=== PATIENT | female | born 1945 | race Caucasian/White ===

== ENCOUNTER 2017-02-17 10:43 | Outpatient (CLI) | payer MEDICARE, OTHER ==
[2017-02-17 11:05] LABS: BASOPHILS % 0.3 (0.0-1.5); MEAN CORPUSCULAR HEMOGLOBIN 30.5 pg (28.0-34.0); MEAN CORPUSCULAR VOLUME 89.8 fl (80.0-100.0); MONOCYTES % 4.4 % (0.0-11.0); NEUTROPHILS # 2.8 # k/uL (1.4-7.7)
[2017-02-17 11:36] LABS: eGFR (African) > 60; eGFR (Non-African) > 60
--- NOTE | 2017-02-17 16:54 | Diagnostic Imaging Report ---
[facility] [address] [facility] [address] [address] Report Submission Date: Feb 17, 2017 3:21:55 PM CDT Patient Study Name: JOHN FINNEGAN Date: Feb 17, 2017 11:33:04 AM CDT Modality Type: CR Gender: F Description: CHEST : 47 Institution: [facility] Physician: ZAID MIKE - BERTIN Chest PA and lateral views Clinical history: Cough for 6 weeks Widening of the superior mediastinum with possible of right aortic arch. Normal heart shadow. Old healed fracture of the right 6th rib of the adjacent right pleural thickening. No acute infiltrates or pleural effusion. Impression: Widening of the superior mediastinum with possible right aortic arch, no prior exams are available for comparison Recommend CT scan of the chest with IV contrast for further confirmation and evaluation . No acute infiltrates or pleural effusion Electronically signed on Feb 17, 2017 3:21:55 PM CDT by: Hola JIMENEZ
== END 2017-02-17 10:44 ==
LOC: LAB 10:43
PROVIDERS: ATTEND Family Medicine
DX: E11.9 Type 2 diabetes mellitus without complications (principal); R53.83 Other fatigue; R05 Cough
CPT/HCPCS: 36415; 71020; 80053; 83036; 85025

== ENCOUNTER 2017-02-22 10:07 | Outpatient (CLI) | payer MEDICARE, OTHER ==
--- NOTE | 2017-02-22 19:12 | Diagnostic Imaging Report ---
Report Submission Date: Feb 22, 2017 5:01:47 PM CDT Patient ~ Study Name: JOHN FINNEGAN ~ Date: Feb 22, 2017 10:29:36 AM CDT ~ Modality Type: CT\SR Gender: F ~ Description: CT CHEST W/ CONTRAST : 47 ~ Institution: [facility] Physician: ZAID MIKE ~ ~ ~ ~ HISTORY: ~71-year-old female with chest x-ray demonstrating widened mediastinum. COMPARISON: Chest x-ray dated 02/17/2017 TECHNIQUE: Helical CT images of the chest were performed with 94 ml Omnipaque 300 contrast. ~Sagittal and coronal reformatted images were obtained. FINDINGS: No consolidative infiltrates, pneumothorax, pleural effusions, suspicious lung nodules, or pulmonary edema. ~No suspicious mediastinal or axillary adenopathy. ~There are calcific pleural plaques throughout the right hemithorax. ~There is volume loss of the right hemithorax. ~The heart is not enlarged. ~There are extensive coronary artery calcifications. ~There are calcifications about the aortic valve. ~There is a right aortic arch giving the appearance of upper mediastinum widening on recent chest x-ray. ~The first branch of the aortic arch is a left innominate artery giving rise to the left common carotid and subclavian arteries. ~The second branch of the aortic arch is on the right common carotid artery. ~The third branch of the aortic arch is the right subclavian artery. 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 The liver is diffusely fatty infiltrated. IMPRESSION: 1. 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 2. ~Calcific right pleural plaques and decreased volume of the right hemithorax may be related to old granulomatous disease or asbestos-related pleural disease. ~Does the patient have symptoms of restrictive lung disease or fibrothorax? 3. ~Extensive coronary artery disease. 4. ~Pulmonary arterial hypertension. 5. ~Diffuse fatty infiltration of the liver. ~ Electronically signed on Feb 22, 2017 5:01:47 PM CDT by: Abraham JIMENEZ
== END 2017-02-22 10:10 ==
LOC: RAD 10:07
PROVIDERS: ATTEND Family Medicine
DX: R93.8 Abnormal findings on diagnostic imaging of other specified body structures (principal)
CPT/HCPCS: 71260; Q9966

== ENCOUNTER 2017-02-24 08:53 | Outpatient (CLI) | payer MEDICARE, OTHER | END 2017-02-24 08:55 | LOC: LAB 08:53 | PROVIDERS: ATTEND Family Medicine | DX: R30.0 Dysuria (principal) | CPT/HCPCS: 87086; 87186 ==

== ENCOUNTER 2017-03-07 09:55 | Outpatient (CLI) | payer MEDICARE, OTHER | END 2017-03-07 09:56 | LOC: LAB 09:55 | PROVIDERS: ATTEND Family Medicine | DX: R30.0 Dysuria (principal) | CPT/HCPCS: 87086; 87186 ==

== ENCOUNTER 2017-03-18 10:20 | Outpatient (CLI) | payer MEDICARE, OTHER | END 2017-03-18 10:21 | LOC: LABRHC 10:20 | PROVIDERS: ATTEND Family Medicine | DX: R30.0 Dysuria (principal) | CPT/HCPCS: 87086; 87186 ==

== ENCOUNTER 2017-04-25 10:05 | Outpatient (CLI) | payer MEDICARE, OTHER | END 2017-04-25 10:06 | LOC: LABRHC 10:05 | PROVIDERS: ATTEND Family Medicine | DX: R30.0 Dysuria (principal) | CPT/HCPCS: 87086 ==

== ENCOUNTER 2018-04-11 18:54 | Emergency (ER) | payer MEDICARE, OTHER ==
[2018-04-11] MEDS ORDERED: DIPH,PERTUSS(ACELL),TET VAC/PF 0.5 ML DISP.SYRIN IM ONE (19:11)
--- NOTE | 2018-04-11 19:18 | ED Physician Documentation ---
Fall - HISTORIAN Historian: patient, spouse - HPI Stated Complaint: Fall with head wound Chief Complaint: Fall Additional Information: pt fell backward hit head on cement has 2cm lac lt occiput denies sig lhead or neckkl pain- c/o pain lt wrist Onset: just prior to arrival (1829) Where: home Context: lost balance r: mild Associated Symptoms:: no loss of consciousness. denies: dazed, comatose Location of Pain/Injury: head. denies: neck, face Injury to Right Extremity: none Injury to Left Extremity: wrist - ROS CONST: no problems NEURO: denies: dizziness, anxiety, depression, other MS/SKIN/LYMPH: denies: weakness, numbness, neck pain, back pain EYES/ENT: none. 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 wears devise to prevent rt foot drop-walks swith cane out of house -- - gerd hi chol ) Immunizations: denies: UTD Allergies/Adverse Reactions: Allergies Allergy/AdvReac Type Severity Reaction Status Date / Time No Known Allergies Allergy Unverified 04/11/18 19:07 Home Medications: Ambulatory Orders Medication Instructions Recorded Baclofen 5 mg PO BID u2 03/27/13 Clopidogrel Bisulfate [Plavix] 75 mg PO DAILY u2 03/27/13 - SOCIAL HX Smoking History: less than 1 pack/day Alcohol Use: none Drug Use: none - FAMILY HX Family History: no significant history - VITAL SIGNS Vital Signs: Vital Signs Temp Pulse Resp BP Pulse Ox 98.0 F 73 16 160/70 96 04/11/18 18:55 04/11/18 18:55 04/11/18 18:55 04/11/18 18:55 04/11/18 18:55 - REVIEWED ASSESSMENTS Nursing Assessment Reviewed: Yes Vitals Reviewed: Yes ED Results Lab/Radiology - Orders Orders: ED Orders Category Date Time Status Skin Adhesive NOW Care 04/11/18 19:15 Ordered WRIST 3 VIEWS OR MORE [RAD] Stat Exams 04/11/18 Ordered Diph,Pertuss(Acell),Tet Vac/Pf [Adacel] Med 04/11/18 19:11 Once 0.5 ml IM .ONCE ONE Fall Physical Exam - Physical Exam General Appearance: mild distress Head: non-tender, trauma (2cm lt post occiput) Neck: non-tender Eye: JESE, EOMI ENT: nml external inspection Resp/CVS: chest non-tender, breath sounds nml, heart sounds nml Abdomen: soft, non-tender Neuro: oriented x3, sensation nml, motor nml, mood/affect nml Skin: color nml, no rash. No: cyanosis, diaphoresis, pallor, ecchymosis, skin rash Extremities: other (lt wrist) - Bovey Coma Score Eyes Open: Spontaneous Speech: Oriented Motor: Obeys Commands Discharge Clincal Impression: head lac 2cm Referrals: Susannah Em MD [Primary Care Provider] - 2 Days Comments: wound cleansed ww/ betadine exp for body approx w shabbir-pt hemanth well Condition: Good Disposition: 01 HOME, SELF-CARE Decision to Admit: NO Decision Time: 13:48
[2018-04-11 20:20] VITALS: BP 141/66
--- NOTE | 2018-04-12 05:32 | Diagnostic Imaging Report ---
AMNA ESTEVEZ [facility] [address] [facility] [address] [address] Report Submission Date: April 11, 2018 7:49:24 PM CDT Patient Study Name: JOHN FINNEGAN Date: April 11, 2018 7:13:00 PM CDT Modality Type: DX Gender: F Description: UPPER EXTREMITY : 47 Institution: [facility] Physician: AMNA ESTEVEZ Left wrist 3 views Date of Exam: April 11, 2018. History: PAIN FROM FALL GOING UP STAIRS (Hx) / ITS.REASON falll wrist pain Findings: Degenerative osteoarthritic changes are present. There is no evidence of acute fracture or dislocation. The radiocarpal alignment is maintained. There is mild soft tissue swelling. The carpal bones are intact. Impression: No acute osseous abnormality. Degenerative osteoarthritic changes. Electronically signed on April 11, 2018 7:49:24 PM CDT by: Franc JIMENEZ
== END 2018-04-11 20:15 | disposition home or self-care (01) ==
LOC: ED 18:54
DX: S01.81XA Laceration without foreign body of other part of head, initial encounter (principal); W18.30XA Fall on same level, unspecified, initial encounter; Y93.9 Activity, unspecified; Y92.9 Unspecified place or not applicable; Z23 Encounter for immunization
CPT/HCPCS: 12001; 73110; 90471; 90715

== ENCOUNTER 2018-04-13 09:59 | Outpatient (CLI) | payer MEDICARE, OTHER ==
--- NOTE | 2018-04-13 19:50 | Diagnostic Imaging Report ---
[facility] [address] [facility] [address] [place], [place]. [address] Report Submission Date: April 13, 2018 10:41:44 AM CDT Patient Study Name: JOHN FINNEGAN Date: April 13, 2018 10:11:55 AM CDT Modality Type: CT\SR Gender: F Description: CT BRAIN W/O CONTRAST : 47 Institution: [facility] Physician: ZAID MIKE Examination: CT head without contrast History: CT HEAD W/O, S/P FALL- HIT HEAD 04/11/18, LEFT SIDED PAIN, ON PLAVIX FOR CVA, PT STATES HX OF STROKE X7 YEARS AGO (Hx) Comparison exam: None available Technique: Noncontrast head CT protocol. Findings: Ventricles and sulci are prominent, though consistent for patient age. Cerebrocerebellar parenchyma demonstrates periventricular low attenuation consistent with small vessel disease. No evidence for parenchymal hemorrhage. No evidence for mass or mass effect. No midline shift. No extra axial fluid collections. Partial visualization of the paranasal sinuses, mastoid air cells, orbits, skull and scalp without gross irregularity. Anterior falx calcifications. Impression: Advanced age related changes. No acute parenchymal process. No hemorrhage. Correlation with any older exams recommended to confirm stability of the presumed age related parenchymal changes. Electronically signed on April 13, 2018 10:41:44 AM CDT by: Prieto JIMENEZ
== END 2018-04-13 10:00 ==
LOC: RAD 09:59
PROVIDERS: ATTEND Family Medicine
DX: S00.83XD Contusion of other part of head, subsequent encounter (principal); E11.9 Type 2 diabetes mellitus without complications; W19.XXXA Unspecified fall, initial encounter; Y93.9 Activity, unspecified; Y92.9 Unspecified place or not applicable; Y99.9 Unspecified external cause status
CPT/HCPCS: 36415; 70450; 83036

== ENCOUNTER 2018-11-20 11:41 | Outpatient (CLI) | payer MEDICARE, OTHER ==
[2018-11-20 12:02] LABS: MEAN CORPUSCULAR HEMOGLOBIN 30.2 pg (28.0-34.0)
[2018-11-20 12:03] LABS: MONOCYTES % 4.7 % (0.0-11.0)
[2018-11-20 12:04] LABS: BASOPHILS % 0.4 (0.0-1.5); EOSINOPHILS % 2.2 % (0.0-6.8); NEUTROPHILS # 3.8 # k/uL (1.4-7.7)
[2018-11-20 12:19] LABS: eGFR (Non-African) > 60
== END 2018-11-20 11:43 ==
LOC: LAB 11:41
PROVIDERS: ATTEND Family Medicine
DX: R53.82 Chronic fatigue, unspecified (principal); E11.9 Type 2 diabetes mellitus without complications
CPT/HCPCS: 36415; 80053; 83036; 84443; 85025

== ENCOUNTER 2019-10-25 09:54 | Outpatient (CLI) | payer MEDICARE, OTHER ==
--- NOTE | 2019-10-25 14:29 | Diagnostic Imaging Report ---
PATIENT MR#: [id number] PATIENT PATIENT NAME: JOHN FINNEGAN DATE OF : 1945 REFERRING PHYSICIAN: Susannah Em EXAM DATE: 10/25/2019 ACCESSION NUMBER: [id number] EXAM DESCRIPTION: KNEE 3 VIEWS CLINICAL HISTORY: PAIN IN LEFT KNEE X2-3 WEEKS COMPARISON: No study for comparison is available at the time of interpretation. TECHNIQUE: DX left knee, 3 views Osseous structures: The osseous structures are normal with no evidence of fracture or dislocation. Th ere is no osseous lesion or periosteal reaction. Joint spaces: There is severe narrowing of the lateral patellofemoral articular space, with large mar ginal osteophytes and mild lateral patellar subluxation. Soft tissues: There is atherosclerotic calcification of the popliteal vessels. 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 Read by: Dr. Renzo Sosa Transcribed by: Renzo Sosa Transcribed Date: 10/25/2019 2:28:55 PM Electronically signed by: Dr. Renzo Sosa Date signed: 10/25/2019 2:28:55 PM
--- NOTE | 2019-10-25 14:39 | Diagnostic Imaging Report ---
PATIENT MR#: [id number] PATIENT PATIENT NAME: JOHN FINNEGAN DATE OF : 1945 REFERRING PHYSICIAN: Susannah Em EXAM DATE: 10/25/2019 ACCESSION NUMBER: [id number] EXAM DESCRIPTION: CHEST 2VIEW HISTORY: PERSISTANT PRODUCTIVE COUGH FOR ABOUT 3 WEEKS. COMPARISON: CT Chest February 22, 2017. CHEST RADIOGRAPH, FRONTAL AND LATERAL: Upper mediastinum: Right sided aortic arch. Heart: No cardiomegaly. Lungs: Again seen are calcified pleural plaques superimposed over the right lung. There is a scant ri ght pleural effusion. The left lung is clear. No lobar infiltrate, pulmonary edema, or pneumothorax. Skeleton: No acute findings. IMPRESSION: 1. Stable appearance of right pleural plaques with small pleural effusion. 2. No lobar infiltrate. 3. Right sided aortic arch, an anatomic variant. Read by: Dr. Renzo Sosa Transcribed by: Renzo Sosa Transcribed Date: 10/25/2019 2:38:35 PM Electronically signed by: Dr. Renzo Sosa Date signed: 10/25/2019 2:38:35 PM
== END 2019-10-25 09:59 ==
LOC: LAB 09:54
PROVIDERS: ATTEND Family Medicine
DX: E11.9 Type 2 diabetes mellitus without complications (principal); M25.562 Pain in left knee
CPT/HCPCS: 36415; 71046; 73562; 83036

== ENCOUNTER 2019-11-02 10:08 | Outpatient (CLI) | payer MEDICARE, OTHER ==
[2019-11-02 10:57] LABS: eGFR (Non-African) > 60
[2019-11-05 08:04] LABS: A1C 6.1 % (<5.7)
--- NOTE | 2019-11-05 10:20 | Diagnostic Imaging Report ---
PATIENT MR#: [id number] PATIENT PATIENT NAME: JOHN FINNEGAN DATE OF : 1945 REFERRING PHYSICIAN: Susannah Em EXAM DATE: 11/02/2019 ACCESSION NUMBER: [id number] EXAM DESCRIPTION: CT CHEST W/ CONTRAST HISTORY: 74-year-old female with cough, history of pleural plaques COMPARISON: Chest x-ray dated 10/25/2019. TECHNIQUE: Helical CT images of the chest were performed with 90 ml Omnipaque 350 IV contrast. Sagit cristal and coronal reformatted images were obtained. FINDINGS: There is linear scarring in the right lower lobe. No other infiltrates, pneumothorax, pleu ral effusions, suspicious lung nodules, or pulmonary edema. There are extensive right pleural calcific plaques. No suspicious mediastinal or axillary adenopathy. The heart is not enlarged. There are extensive coronary artery calcifications. The right aortic arch is re-identified. There is a vascular ring around the trachea and esophagus, a s the left subclavian artery communicates with the aortic arch anteriorly and posteriorly. No thoracic aortic a neurysm or dissection. There is at least one gallstone in the gallbladder. IMPRESSION: 1. Extensive right pleural calcific plaques may be due to old granulomatous disease or asbestos-rela ivette pleural disease. 2. Right aortic arch and vascular ring. 3. Extensive coronary artery disease. 4. Right lower lobe scarring is noted. The lungs are otherwise clear. 5. Cholelithiasis. Read by: Dr. Abraham Callaway Transcribed by: Transcribed Date: Electronically signed by: Dr. Abraham Callaway Date signed: 11/05/2019 10:20:40 AM
== END 2019-11-02 10:18 ==
LOC: RAD 10:08
PROVIDERS: ATTEND Family Medicine
DX: I10 Essential (primary) hypertension (principal); E11.9 Type 2 diabetes mellitus without complications; J92.9 Pleural plaque without asbestos
CPT/HCPCS: 36415; 71260; 80048; 83036; Q9967

== ENCOUNTER 2019-11-02 18:10 | Emergency (ER) | payer MEDICARE, OTHER ==
--- NOTE | 2019-11-02 18:24 | ED Physician Documentation ---
General Adult - HISTORIAN Historian: patient - HPI Stated Complaint: weakness Chief Complaint: General Adult Additional Information: Patient presents to ED with a 30 minute history or right hand cramping and a not feeling well. Patient has a history of CVA with residual left leg hemiparesis. Patient states she had a very busy day today with CT chest for cough and physical therapy for her left knee. When she arrived home from the long day she was very tired so she took a nap. When she was cooking dinner her right hand began to cramp, she also states her left leg has been more difficult today. She is on Plavix daily for stroke prevention. Onset: hours (1) Timing: better Severity: mild - ROS CONST: denies: fever EYES/ENT: denies: problems with vision CVS/RESP: denies: chest pain, shortness of breath GI/: denies: abdominal pain, nausea MS/SKIN/LYMPH: denies: ankle swelling NEURO/PSYCH: denies: headache, fainting, dizziness - PAST HX Past History: none Other History: CVA Allergies/Adverse Reactions: Allergies Allergy/AdvReac Type Severity Reaction Status Date / Time soy products Allergy Uncoded 11/02/19 18:21 Home Medications: Ambulatory Orders Medication Instructions Recorded Baclofen 5 mg PO BID u2 03/27/13 Clopidogrel Bisulfate [Plavix] 75 mg PO DAILY u2 03/27/13 - SOCIAL HX Smoking History: cigarettes, greater than 1 pack/day Alcohol Use: none Drug Use: none - FAMILY HX Family History: No - VITAL SIGNS Vital Signs: Vital Signs Temp Pulse Resp BP Pulse Ox 98.2 F 76 16 175/119 92 11/02/19 18:17 11/02/19 18:17 11/02/19 18:17 11/02/19 18:17 11/02/19 18:17 - REVIEWED ASSESSMENTS Nursing Assessment Reviewed: Yes Vitals Reviewed: Yes Progress - EKG/XRAY/CT Comments: 1845 NSR 63 bpm, NO ST elevation ED Results Lab/Radiology - Radiology Radiology Impressions: Report Submission Date: Nov 02, 2019 7:03:51 PM GLUE SPREADER Patient Study Name: JOHN FINNEGAN Date: Nov 02, 2019 6:25:02 PM GLUE SPREADER Modality Type: CT\SR Gender: F Description: CT BRAIN W/O CONTRAST : 47 Institution: [facility] Physician: GENTRY COMER HISTORY: 74-year-old female with right hand cramping, malaise, history of stroke. COMPARISON: Unfortunately, CT scan of the head dated 04/13/2019 was not made available for viewing on the PACS system. TECHNIQUE: Noncontrast axial CT images of the head were performed. Sagittal and coronal reformatted images were obtained. FINDINGS: There is moderate to severe decreased attenuation in the periventricular and bicerebral white matter. There are old lacunar infarcts in the left basal ganglia and right frontal periventricular white matter. There are thick dural calcifications along the falx. No intracranial hemorrhage, mass, midline shift, hydrocephalus, or evidence of acute large vessel infarct. The mastoid air cells, middle ear spaces, and paranasal sinuses are clear. No cranial fracture or scalp edema. The patient is completely edentulous IMPRESSION: Chronic ischemic changes without evidence of acute infarct, intracranial hemorrhage, or other acute intracranial process. Electronically signed on Nov 02, 2019 7:03:51 PM GLUE SPREADER by: Abraham Callaway Report Submission Date: Nov 02, 2019 7:35:41 PM GLUE SPREADER Patient Study Name: JOHN FINNEGAN Date: Nov 02, 2019 11:31:42 AM GLUE SPREADER Modality Type: CT\SR Gender: F Description: CT CHEST W/ CONTRAST : 47 Institution: [facility] Physician: ZAID MIKE HISTORY: 74-year-old female with cough, history of pleural plaques COMPARISON: Chest x-ray dated 10/25/2019. TECHNIQUE: Helical CT images of the chest were performed with 90 ml Omnipaque 350 IV contrast. Sagittal and coronal reformatted images were obtained. FINDINGS: There is linear scarring in the right lower lobe. No other infiltrates, pneumothorax, pleural effusions, suspicious lung nodules, or pulmonary edema. There are extensive right pleural calcific plaques. No suspicious mediastinal or axillary adenopathy. The heart is not enlarged. There are extensive coronary artery calcifications. The right aortic arch is re-identified. There is a vascular ring around the trachea and esophagus, as the left subclavian artery communicates with the aortic arch anteriorly and posteriorly. No thoracic aortic aneurysm or dissection. There is at least one gallstone in the gallbladder. IMPRESSION: 1. Extensive right pleural calcific plaques may be due to old granulomatous disease or asbestos-related pleural disease. 2. Right aortic arch and vascular ring. 3. Extensive coronary artery disease. 4. Right lower lobe scarring is noted. The lungs are otherwise clear. 5. Cholelithiasis. Electronically signed on Nov 02, 2019 7:35:41 PM GLUE SPREADER by: Abraham Callaway - Orders Orders: ED Orders Category Date Time Status Place IV Lock 1T Care 11/02/19 18:[address] BRAIN W/O CONTRAST Stat Exams 11/02/19 Ordered CBC/PLATELET/DIFF Routine Lab 11/02/19 Ordered CMP Routine Lab 11/02/19 Ordered NT BNP Stat Lab 11/02/19 Ordered TROPONIN I Stat Lab 11/02/19 Ordered NORMAL SALINE @ 1000 MLS/HR ( 1000ml BOLUS) Med 11/02/19 18:16 Ordered 0.9 % Sodium Chloride [Normal Saline] 1,000 ml IV Q1H EKG WITH COMPARISON Stat Ther 11/02/19 Ordered General Adult Physical Exam - PHYSICAL EXAM GENERAL APPEARANCE: no distress EENT: JESE NECK: normal inspection, supple RESPIRATORY: no resp distress, breath sounds normal CVS: reg rate & rhythm, heart sounds normal ABDOMEN: soft, normal bowel sounds BACK: normal inspection SKIN: warm/dry EXTREMITIES: non-tender NEURO: oriented X3, CN's nml as tested, mood/affect nml, other (right lower extremity weakness, residual from previous stroke) Discharge Clincal Impression: Weakness Additional Instructions: 1. Continue to take home medications as previously prescribed 2. Pace yourself, do not over exert yourself. Take naps. 3. Drink plenty of fluids to maintain proper hydration. 4. Smoking cessation recommended. 5. Follow up with PCP within 4 days 6. Return to ER for new or worsening symptoms Condition: Stable Decision to Admit: NO Date of Decison to Admit: 11/02/19 Decision Time: 19:51
[2019-11-02] MEDS: 0.9 % SODIUM CHLORIDE 1,000 ML IV ONE (18:31)
[2019-11-02 18:34] LABS: BASOPHILS % 0.8 % (0.0-1.5)
[2019-11-02 18:48] LABS: eGFR (Non-African) > 60
--- NOTE | 2019-11-02 19:08 | Diagnostic Imaging Report ---
PATIENT MR#: [id number] PATIENT PATIENT NAME: JHON FINNEGAN DATE OF : 1945 REFERRING PHYSICIAN: Julienne Ray EXAM DATE: 11/02/2019 ACCESSION NUMBER: [id number] EXAM DESCRIPTION: CT BRAIN W/O CONTRAST HISTORY: 74-year-old female with right hand cramping, malaise, history of stroke. COMPARISON: Unfortunately, CT scan of the head dated 04/13/2019 was not made available for viewing on the PACS system. TECHNIQUE: Noncontrast axial CT images of the head were performed. Sagittal and coronal reformatted images were obtained. FINDINGS: There is moderate to severe decreased attenuation in the periventricular and bicerebral wh ite matter. There are old lacunar infarcts in the left basal ganglia and right frontal periventricular white matter. T here are thick dural calcifications along the falx. No intracranial hemorrhage, mass, midline shift, hydrocephalus, or evidence of acute large vessel infarct. The mastoid air cells, middle ear spaces, and paranasal sinuses are latrice r. No cranial fracture or scalp edema. The patient is completely edentulous IMPRESSION: Chronic ischemic changes without evidence of acute infarct, intracranial hemorrhage, or other acute i ntracranial process. Read by: Dr. Abraham Callaway Transcribed by: Transcribed Date: Electronically signed by: Dr. Abraham Callaway Date signed: 11/02/2019 7:08:15 PM
[2019-11-02 22:37] VITALS: BP 154/72
== END 2019-11-02 20:00 | disposition home or self-care (01) ==
LOC: ED 18:10
DX: R53.1 Weakness (principal)
CPT/HCPCS: 70450; 80053; 83880; 84484; 85025; 93005; 99283; 99284; J7030; S1016